=== PATIENT | male | born 1955 | race Caucasian/White ===

== ENCOUNTER 2017-02-08 11:01 | Outpatient (CLI) | payer MEDICARE, MEDICAID ==
--- NOTE | 2017-02-09 11:10 | Ultrasound Report ---
ABDOMEN ULTRASOUND: 02/08/2017 HISTORY: Abdominal pain. Real-time scanning by the contact lens fitter with saved static images reviewed. COMPARISON: 07/14/2010 FINDINGS: LIVER: 15.8 cm longitudinally. Increased hepatic echogenicity consistent with fatty infiltration. A 5 mm area of low attenuation superior left lobe uncertain significance, possible tiny cyst or focal fatty sparing. GALLBLADDER: Contracted with stones, the largest 2.3 cm. COMMON BILE DUCT: 5.4 mm. INCLUDED PORTIONS OF THE PANCREAS: Unremarkable. RIGHT KIDNEY: 13.9 cm, normal in appearance. LEFT KIDNEY: 9.2 cm with multiple cysts, the largest 2.2 x 1.9 x 2.5 cm mid portion and 2.2 x 2.0 x 1.8 cm inferior portion. There is a 1.3 cm mid pole nonobstructing stone. There is a focal area in the superior pole of the left kidney measuring 2.5 x 2.1 x 1.7 cm, question complex cyst versus solid mass. SPLEEN: 12.5 cm longitudinally, unremarkable. AORTA AND INFERIOR VENA CAVA: No significant pathology. FREE FLUID: None. IMPRESSION: ASYMMETRIC RENAL SIZE SIMILAR TO 07/14/2010. AT LEAST TWO SIMPLE CYSTS ARE SEEN ON THE LEFT KIDNEY. THERE IS AN UPPER POLE COMPLEX CYST VERSUS SOLID MASS, 2.5 X 2.1 X 1.7 CM. FURTHER JANETH LUATION BY A DEDICATED RENAL CT MAY BE USEFUL. DIFFUSE FATTY INFILTRATION OF THE LIVER. CHOLELITHIA SIS WITHOUT FINDINGS OF CHOLECYSTITIS. JOB #: [id number] EXT JOB #:[id number]
== END 2017-02-08 11:02 | disposition home or self-care (01) ==
LOC: DI 11:01
PROVIDERS: ATTEND Nurse Practitioner Gerontology
DX: R10.9 Unspecified abdominal pain (principal); Q61.02 Congenital multiple renal cysts; K76.0 Fatty (change of) liver, not elsewhere classified; K80.20 Calculus of gallbladder without cholecystitis without obstruction
CPT/HCPCS: 76700

== ENCOUNTER 2017-03-13 11:42 | Outpatient (CLI) | payer MEDICARE, MEDICAID ==
[2017-03-13] MEDS ORDERED: IOPAMIDOL-300 50 ML VIAL ONE (11:55)
[2017-03-13] MEDS ORDERED: IOPAMIDOL-300 100 ML VIAL ONE (11:55)
[2017-03-13 12:46] LABS: CALCIUM 8.9 mg/dL (8.5-10.3)
[2017-03-13] MEDS ORDERED: IOPAMIDOL-300 50 ML VIAL PO ONE (13:11)
[2017-03-13] MEDS ORDERED: IOPAMIDOL-300 100 ML VIAL IVP ONE (13:11)
--- NOTE | 2017-03-13 16:32 | CT Report ---
DATE OF SERVICE: 03/13/2017 CT OF ABDOMEN WITH CONTRAST: 03/13/2017 CLINICAL INDICATION: Possible renal mass on ultrasound TECHNIQUE: Axial CT images of the abdomen were obtained with intravenous contrast. COMPARISON: Ultrasound 02/08/2017. FINDINGS: Limited evaluation of the lung bases demonstrates minimal atelectasis. ABDOMEN: Right kidney appears unremarkable. The left kidney is atrophic, with multiple calculi pres ent. The lesion arising from the upper pole of the left kidney is hyperdense on CT, measuring 60 Hounsfield un its, compatible with a solid renal lesion, and measures 2.1 x 2.0 x 2.2 cm. Lower pole cysts are also not ed. There is normal enhancement of the left renal vein. The gallbladder demonstrates multiple calculi. The liver, spleen, pancreas and adrenal glands appear unremarkable. No bowel dilatation, free gas, or fr ee fluid is present. No abdominal adenopathy is seen. Osseous structures demonstrate degenerative changes. IMPRESSION: HYPERDENSE LESION ARISING FROM THE UPPER POLE OF THE ATROPHIC LEFT KIDNEY, COMPATIBLE WI TH A SOLID RENAL MASS, MEASURING [address] In accordance with CT protocol optimization, one or more of the following dose reduction techniques w ere utilized for this exam: automated exposure control, adjustment of mA and/or KV based on patient size , or use of iterative reconstructive technique. TD: 03/13/2017 17:31
== END 2017-03-13 11:43 | disposition home or self-care (01) ==
LOC: LAB 11:42
PROVIDERS: ATTEND Nurse Practitioner Gerontology
DX: N28.89 Other specified disorders of kidney and ureter (principal)
CPT/HCPCS: 36415; 74160; 80048; Q9967

== ENCOUNTER 2017-06-12 09:02 | Outpatient (CLI) | payer MEDICARE, MEDICAID ==
[2017-06-12 13:13] LABS: BASOPHILS # (AUTO) 0.1 10^3/uL (0.0-0.1); BASOPHILS % (AUTO) 0.8 %; EOSINOPHILS # (AUTO) 0.2 10^3/uL (0.0-0.7); EOSINOPHILS % (AUTO) 2.7 %; HGB - HEMOGLOBIN 14.5 g/dL (14.0-18.0); LYMPHOCYTES # (AUTO) 2.3 10^3/uL (1.5-3.5); LYMPHOCYTES % (AUTO) 28.4 %; MEAN CORPUSCULAR HEMOGLOBIN 29.1 pg (27.0-31.0); MEAN CORPUSCULAR VOLUME 85.8 fL (80.0-94.0); MEAN PLATELET VOLUME 7.3 fL (7.4-11.4); MONOCYTES # (AUTO) 0.6 10^3/uL (0.0-1.0); MONOCYTES % (AUTO) 6.9 %; NEUTROPHILS # (AUTO) 4.9 10^3/uL (1.5-6.6); NEUTROPHILS % (AUTO) 61.2 %; PLT - PLATELET COUNT 287 10^3/uL (130-450); RED BLOOD COUNT 4.98 10^6/uL (4.70-6.10); RED CELL DISTRIBUTION WIDTH 13.7 % (12.0-15.0)
[2017-06-12 13:28] LABS: ALBUMIN/GLOBULIN RATIO 1.3 (1.0-2.2); BILIRUBIN,TOTAL 0.8 mg/dL (0.2-1.0); CALCIUM 8.4 mg/dL (8.5-10.3); CREATININE 1.1 mg/dL (0.6-1.2); TOTAL PROTEIN 7.1 g/dL (6.7-8.2)
== END 2017-06-12 09:03 | disposition home or self-care (01) ==
LOC: LAB.N 09:02
PROVIDERS: ATTEND Urology
DX: N28.89 Other specified disorders of kidney and ureter (principal)
CPT/HCPCS: 36415; 80053; 85025

== ENCOUNTER 2017-11-27 08:00 | Outpatient (CLI) | payer MEDICARE, MEDICAID ==
[2017-11-27 19:06] LABS: CALCIUM 9.2 mg/dL (8.5-10.3)
== END 2017-11-27 08:01 | disposition home or self-care (01) ==
LOC: LAB.N 08:00
PROVIDERS: ATTEND Nurse Practitioner Gerontology
DX: Z90.5 Acquired absence of kidney (principal); I10 Essential (primary) hypertension; Z13.9 Encounter for screening, unspecified; N28.89 Other specified disorders of kidney and ureter
CPT/HCPCS: 36415; 80048

== ENCOUNTER 2018-01-12 12:14 | Outpatient (CLI) | payer MEDICARE, MEDICAID ==
[2018-01-12 19:25] LABS: ALBUMIN 4.4 g/dL (3.2-5.5); ALBUMIN/GLOBULIN RATIO 1.3 (1.0-2.2); BILIRUBIN,TOTAL 0.9 mg/dL (0.2-1.0); CREATININE 0.9 mg/dL (0.6-1.2); TOTAL PROTEIN 7.7 g/dL (6.7-8.2)
== END 2018-01-12 23:59 ==
LOC: LAB.N 12:14
PROVIDERS: ATTEND Urology
DX: C64.2 Malignant neoplasm of left kidney, except renal pelvis (principal)
CPT/HCPCS: 36415; 80053

== ENCOUNTER 2018-05-01 14:56 | Outpatient (CLI) | payer MEDICARE, MEDICAID ==
--- NOTE | 2018-05-01 16:25 | XRAY Report ---
Reason: abnormal breath counds LLL Procedure Date: 05/01/2018 Accession Number: [id number] / [id number] Procedure: XRN - Chest 2 View X-Ray CPT Code: 59974 FULL RESULT: EXAM: CHEST RADIOGRAPHY EXAM DATE: 05/01/2018 03:15 PM. CLINICAL HISTORY: Abnormal breath sounds left lower lobe. COMPARISON: Ribs with PA chest left 11/25/2015 8:24 AM. TECHNIQUE: 2 views. FINDINGS: Lungs/Pleura: No focal opacities evident. No pleural effusion. No pneumothorax. Normal volumes. Mediastinum: Heart and mediastinal contours are unremarkable. Other: None. IMPRESSION: No acute airspace disease is detected. RADIA
== END 2018-05-01 14:57 | disposition home or self-care (01) ==
LOC: DI.N 14:56
PROVIDERS: ATTEND Nurse Practitioner Gerontology
DX: R09.89 Other specified symptoms and signs involving the circulatory and respiratory systems (principal)
CPT/HCPCS: 71046

== ENCOUNTER 2019-03-11 08:00 | Outpatient (CLI) | payer MEDICARE, MEDICAID ==
[2019-03-11 18:52] LABS: ALBUMIN 4.1 g/dL (3.2-5.5); ALBUMIN/GLOBULIN RATIO 1.4 (1.0-2.2); BILIRUBIN,TOTAL 0.8 mg/dL (0.2-1.0); CALCIUM 9.1 mg/dL (8.5-10.3); TOTAL PROTEIN 7.1 g/dL (6.7-8.2)
== END 2019-03-11 23:59 | disposition home or self-care (01) ==
LOC: LAB.N 08:00
PROVIDERS: ATTEND Urology
DX: Z85.528 Personal history of other malignant neoplasm of kidney (principal)
CPT/HCPCS: 36415; 80053

== ENCOUNTER 2020-10-12 08:00 | Outpatient (CLI) | payer MEDICARE, MEDICAID ==
[2020-10-12 17:47] LABS: BASOPHILS # (AUTO) 0.1 10^3/uL (0.0-0.1); BASOPHILS % (AUTO) 0.8 %; EOSINOPHILS # (AUTO) 0.2 10^3/uL (0.0-0.7); EOSINOPHILS % (AUTO) 2.1 %; HCT - HEMATOCRIT 48.7 % (42.0-52.0); HGB - HEMOGLOBIN 15.6 g/dL (14.0-18.0); LYMPHOCYTES # (AUTO) 1.8 10^3/uL (1.5-3.5); LYMPHOCYTES % (AUTO) 19.2 %; MEAN CORPUSCULAR HEMOGLOBIN 28.3 pg (27.0-31.0); MEAN CORPUSCULAR VOLUME 88.4 fL (80.0-94.0); MEAN PLATELET VOLUME 9.6 fL (7.4-11.4); MONOCYTES # (AUTO) 0.5 10^3/uL (0.0-1.0); MONOCYTES % (AUTO) 5.9 %; NEUTROPHILS # (AUTO) 6.6 10^3/uL (1.5-6.6); NEUTROPHILS % (AUTO) 71.7 %; PLT - PLATELET COUNT 325 10^3/uL (130-450); RED BLOOD COUNT 5.51 10^6/uL (4.70-6.10); RED CELL DISTRIBUTION WIDTH 12.8 % (12.0-15.0); WHITE BLOOD COUNT 9.2 x10^3/uL (4.8-10.8)
[2020-10-12 18:31] LABS: ALBUMIN 4.1 g/dL (3.2-5.5); ALBUMIN/GLOBULIN RATIO 1.3 (1.0-2.2); ALKALINE PHOSPHATASE 93 IU/L (42-121); ALT ALANINE AMINOTRANSFERASE 33 IU/L (10-60); AST ASPARTATE AMINOTRANSFERASE 31 IU/L (10-42); BILIRUBIN,TOTAL 0.8 mg/dL (0.2-1.0); BUN - BLOOD UREA NITROGEN 11 mg/dL (6-20); CALCIUM 9.3 mg/dL (8.5-10.3); CARBON DIOXIDE - CO2 28 mmol/L (21-32); CHLORIDE 99 mmol/L (101-111); CHOL/HDL RATIO 2.5 (<5.0); CHOLESTEROL 129 mg/dL; GFR - MDRD 75 (>89); GLUCOSE 341 mg/dL (70-100); HDL CHOLESTEROL 52 mg/dL; LDL CHOLESTEROL,CALCULATED 59 mg/dL; LDL/HDL RATIO 1.1 (<3.6); POTASSIUM 4.2 mmol/L (3.5-5.0); SODIUM 138 mmol/L (135-145); TOTAL PROTEIN 7.2 g/dL (6.7-8.2); TRIGLYCERIDES 89 mg/dL; URIC ACID 4.8 mg/dL (2.6-7.2); VLDL CHOLESTEROL 18 mg/dL
[2020-10-12 18:42] LABS: THYROID STIMULATING HORMONE 1.51 uIU/mL (0.34-5.60)
[2020-10-12 19:10] LABS: CREATININE,URINE 117.7 mg/dL; MICROALBUM/CREATININE RATIO,UR 117.2 ug/mg (<30.0); MICROALBUMIN,URINE 13.8 mg/dL (0-300.0)
[2020-10-12 20:09] LABS: ESTIMATED AVERAGE GLUCOSE 258 mg/dL (70-100); HEMOGLOBIN A1c% 10.6 % (4.27-6.07)
== END 2020-10-12 23:59 | disposition home or self-care (01) ==
LOC: LAB.WCP 08:00
PROVIDERS: ATTEND Internal Medicine
DX: I10 Essential (primary) hypertension (principal); R73.01 Impaired fasting glucose; Z12.5 Encounter for screening for malignant neoplasm of prostate; R53.83 Other fatigue; M10.9 Gout, unspecified
CPT/HCPCS: 36415; 80053; 80061; 82043; 82570; 83036; 84443; 84550; 85025; G0103; 83721; 84153

== ENCOUNTER 2021-07-24 08:00 | Outpatient (CLI) | payer MEDICARE, MEDICAID | END 2021-07-24 23:59 | disposition home or self-care (01) | LOC: LAB.N 08:00 | PROVIDERS: ATTEND Physician Assistant Medical | DX: E11.9 Type 2 diabetes mellitus without complications (principal) | CPT/HCPCS: 82962 ==

== ENCOUNTER 2022-03-16 10:10 | Outpatient (CLI) | payer MEDICARE, MEDICAID ==
[2022-03-16 12:10] LABS: BASOPHILS # (AUTO) 0.1 10^3/uL (0.0-0.1); EOSINOPHILS # (AUTO) 0.2 10^3/uL (0.0-0.7); EOSINOPHILS % (AUTO) 2.6 %; HCT - HEMATOCRIT 49.4 % (42.0-52.0); HGB - HEMOGLOBIN 16.1 g/dL (14.0-18.0); LYMPHOCYTES % (AUTO) 25.4 %; MEAN CORPUSCULAR HGB CONC 32.6 g/dL (32.0-36.0); MEAN CORPUSCULAR VOLUME 88.8 fL (80.0-94.0); MEAN PLATELET VOLUME 9.4 fL (7.4-11.4); MONOCYTES # (AUTO) 0.6 10^3/uL (0.0-1.0); MONOCYTES % (AUTO) 7.5 %; NEUTROPHILS % (AUTO) 63.2 %; PLT - PLATELET COUNT 296 10^3/uL (130-450); RED BLOOD COUNT 5.56 10^6/uL (4.70-6.10); RED CELL DISTRIBUTION WIDTH 12.7 % (12.0-15.0)
[2022-03-16 12:27] LABS: ALBUMIN 4.1 g/dL (3.2-5.5); ALBUMIN/GLOBULIN RATIO 1.3 (1.0-2.2); ALKALINE PHOSPHATASE 81 IU/L (42-121); ALT ALANINE AMINOTRANSFERASE 20 IU/L (10-60); AST ASPARTATE AMINOTRANSFERASE 19 IU/L (10-42); BUN - BLOOD UREA NITROGEN 19 mg/dL (6-20); CALCIUM 9.2 mg/dL (8.5-10.3); CARBON DIOXIDE - CO2 28 mmol/L (21-32); CHLORIDE 99 mmol/L (101-111); CHOL/HDL RATIO 2.3 (<5.0); CHOLESTEROL 109 mg/dL; GFR - MDRD 75 (>89); GLUCOSE 150 mg/dL (70-100); HDL CHOLESTEROL 48 mg/dL; LDL CHOLESTEROL,CALCULATED 51 mg/dL; LDL/HDL RATIO 1.1 (<3.6); SODIUM 136 mmol/L (135-145); TOTAL PROTEIN 7.3 g/dL (6.7-8.2); TRIGLYCERIDES 51 mg/dL; VLDL CHOLESTEROL 10 mg/dL
[2022-03-16 12:42] LABS: THYROID STIMULATING HORMONE 2.13 uIU/mL (0.34-5.60)
[2022-03-16 13:17] LABS: ESTIMATED AVERAGE GLUCOSE 134 mg/dL (70-100); HEMOGLOBIN A1c% 6.3 % (4.27-6.07)
== END 2022-03-16 10:11 | disposition home or self-care (01) ==
LOC: LAB.N 10:10
PROVIDERS: ATTEND Internal Medicine
DX: I10 Essential (primary) hypertension (principal); E11.9 Type 2 diabetes mellitus without complications; Z12.5 Encounter for screening for malignant neoplasm of prostate; M10.9 Gout, unspecified
CPT/HCPCS: 36415; 80053; 80061; 83036; 84443; 84550; 85025; G0103; 83721; 84153

== ENCOUNTER 2022-10-17 12:34 | Outpatient (CLI) | payer MEDICARE, MEDICAID ==
[2022-10-17 18:26] LABS: ALBUMIN 4.3 g/dL (3.2-5.5)
[2022-10-17 18:46] LABS: ALBUMIN/GLOBULIN RATIO 1.3 (1.0-2.2); BILIRUBIN,TOTAL 5.7 mg/dL (0.2-1.0); POTASSIUM 3.5 mmol/L (3.5-4.5); TOTAL PROTEIN 7.6 g/dL (6.4-8.9)
[2022-10-17 18:52] LABS: CREATININE,URINE 193.4 mg/dL
[2022-10-17 19:04] LABS: MICROALBUM/CREATININE RATIO,UR 476.7 ug/mg (<30.0); MICROALBUMIN,URINE 92.2 mg/dL
[2022-10-17 22:13] LABS: ESTIMATED AVERAGE GLUCOSE 137 mg/dL (70-100); HEMOGLOBIN A1c% 6.4 % (4.27-6.07)
== END 2022-10-17 12:35 | disposition home or self-care (01) ==
LOC: LAB.N 12:34
PROVIDERS: ATTEND Internal Medicine
DX: E11.9 Type 2 diabetes mellitus without complications (principal); M10.9 Gout, unspecified
CPT/HCPCS: 36415; 80053; 82043; 82570; 83036; 84550

== ENCOUNTER 2022-10-18 10:55 | Outpatient (CLI) | payer MEDICARE, MEDICAID ==
[2022-10-18 18:28] LABS: FERRITIN 457.9 ng/mL (23.9-336.2)
[2022-10-19 05:14] LABS: HBsAG SCREEN Negative (Negative); HCV AB Non Reactive (Non Reactive)
[2022-10-20 19:07] LABS: ACTIN (SMOOTH MUSCLE) ANTIBODY 6 Units (0-19); MITOCHONDRIAL (M2) ANTIBODY <20.0 Units (0.0-20.0)
== END 2022-10-18 10:56 | disposition home or self-care (01) ==
LOC: LAB.N 10:55
PROVIDERS: ATTEND Internal Medicine
DX: R79.89 Other specified abnormal findings of blood chemistry (principal)
CPT/HCPCS: 36415; 82150; 82728; 83540; 83690; 84466; 86015; 86381; 86704; 86803; 87340

== ENCOUNTER 2022-10-19 08:00 | Outpatient (CLI) | payer MEDICARE, MEDICAID ==
[2022-10-19 18:02] LABS: GLUCOSE, URINE (UA) 500 mg/dL (NEGATIVE); KETONES,URINE (UA) NEGATIVE (NEGATIVE); LEUKOCYTE ESTERASE, URINE NEGATIVE (NEGATIVE); NITRITE,URINE NEGATIVE (NEGATIVE); OCCULT BLOOD,URINE TRACE-INTA (NEGATIVE); PH,URINE 5.5 PH (5.0-7.5); PROTEIN,URINE 100 mg/dL (NEGATIVE); UROBILINOGEN,URINE 1 (NORMAL) E.U./dL (NORMAL)
[2022-10-19 18:04] LABS: CLARITY,URINE CLOUDY (CLEAR)
[2022-10-19 18:17] LABS: BILIRUBIN,URINE NEGATIVE (NEGATIVE); ICTOTEST,URINE NEGATIVE
[2022-10-19 18:27] LABS: AMORPHOUS SEDIMENT,UR Moderate /LPF; BACTERIA,URINE Rare /HPF (None Seen); RBC,URINE 0-5 /HPF (0-5); SQUAMOUS EPITHELIAL CELL,UR NONE SEEN (<= Few); WBC,URINE 0-3 /HPF (0-3)
[2022-10-19 18:28] LABS: CRYSTALS,URINE 11-25 Ca Oxalate /LPF
== END 2022-10-19 23:59 | disposition home or self-care (01) ==
LOC: LAB.N 08:00
PROVIDERS: ATTEND Nurse Practitioner Family
DX: R10.30 Lower abdominal pain, unspecified (principal)
CPT/HCPCS: 81001; 81003; 87086

== ENCOUNTER 2022-11-17 20:52 | Outpatient (CLI) | payer MEDICARE, MEDICAID | END 2022-11-17 23:59 | disposition critical access hospital (66) | LOC: EMS 20:52 | DX: R10.826 Epigastric rebound abdominal tenderness (principal); R10.822 Left upper quadrant rebound abdominal tenderness; R10.815 Periumbilic abdominal tenderness; R11.2 Nausea with vomiting, unspecified | CPT/HCPCS: A0425; A0427 ==

== ENCOUNTER 2022-11-17 21:16 | Emergency (ER) | payer MEDICARE, MEDICAID ==
--- NOTE | 2022-11-17 21:22 | ED Physician Documentation ---
History of Present Illness - Stated complaint Stated Complaint: ABD PX - History obtained from History obtained from: Patient - Additonal information Additional information: 67-year-old gentleman with history of reflux, "enlarged heart," and nephrectomy for cancer presents with gradual onset epigastric pain radiating up today. It started this morning and got better around 3 PM when he threw up but still has it mildly. It feels like reflux. PD PAST MEDICAL HISTORY - Present Medications Home Medications: Ambulatory Orders Medication Instructions Recorded Confirmed Aspirin 81 mg 11/25/15 Cyclobenzaprine [Flexeril] 10 mg PO TID PRN #20 tablet 11/25/15 HYDROcod/ACETAM 5/325 [[place] 5/325] 1 - 2 ea PO Q6H PRN #15 tablet 11/25/15 Lisinopril 20 mg 11/25/15 allopurinoL [Allopurinol] 100 mg 11/25/15 amLODIPine [Norvasc] 10 mg 11/25/15 raNITIdine [Zantac] 150 mg 11/25/15 - Allergies Allergies/Adverse Reactions: Allergies Allergy/AdvReac Type Severity Reaction Status Date / Time No Known Drug Allergies Allergy Verified 11/17/22 21:22 PD ED PE NORMAL - Vitals Vital signs reviewed: Yes - General General: Alert and oriented X 3, No acute distress - Neck Neck: Supple, no meningeal sign, No bony TTP - Cardiac Cardiac: RRR, No murmur - Respiratory Respiratory: No respiratory distress, Clear bilaterally - Abdomen Abdomen: Non tender - Extremities Extremities: No edema, No calf tenderness / cord - Neuro Neuro: Alert and oriented X 3, Normal speech Results - Vitals Vitals: Vital Signs - 24 hr 11/17/22 11/17/22 11/17/22 21:22 21:24 23:24 Temperature 36.8 C Heart Rate 80 75 66 Respiratory 18 22 20 Rate Blood Pressure 140/90 H 175/114 H 156/82 H O2 Saturation 100 98 97 11/18/22 11/18/22 11/18/22 01:00 03:00 05:00 Temperature 37.1 C Heart Rate 58 L 48 L 54 L Respiratory 20 18 20 Rate Blood Pressure 155/78 H 142/70 H 189/82 H O2 Saturation 99 97 99 11/18/22 07:21 Temperature Heart Rate 53 L Respiratory 15 Rate Blood Pressure 138/65 H O2 Saturation 95 Oxygen O2 Source Room air - EKG (time done) 2200 EKG releavant findings:: EKG personally interpreted by author of this note. Relevant findings are: Rate: Rate (enter#) (78) Rhythm: NSR [place]: Normal Intervals: Normal [place] QRS: Normal Ischemia: Non specific changes Compare to prior EKG: Old EKG unavailable Computer interpretation: Agree with computer - Labs Labs: Laboratory Tests 11/17/22 11/17/22 11/18/22 21:27 21:27 00:51 WBC 15.6 H RBC 5.66 Hgb 16.6 Hct 49.3 MCV 87.1 MCH 29.3 MCHC 33.7 RDW 12.9 Plt Count 307 MPV 9.0 Neut # (Auto) 14.4 H Lymph # (Auto) 0.4 L [place] # (Auto) 0.6 Eos # (Auto) 0.0 Baso # (Auto) 0.1 Absolute Nucleated RBC 0.00 Nucleated RBC % 0.0 Sodium 137 Potassium 4.1 Chloride 100 L Carbon Dioxide 26 Anion Gap 11.0 BUN 16 Creatinine 0.9 Estimated GFR (MDRD) 84 L Glucose 219 H Lactic Acid 1.9 Calcium 9.3 Total Bilirubin 4.2 H AST 311 H ALT 254 H Alkaline Phosphatase 154 H Troponin I High Sens 6.0 Total Protein 7.4 Albumin 4.0 Globulin 3.4 Albumin/Globulin Ratio 1.2 Lipase 2028 H 11/18/22 11/18/22 05:20 05:20 WBC 12.0 H RBC 5.41 Hgb 16.2 Hct 47.8 MCV 88.4 MCH 29.9 MCHC 33.9 RDW 13.2 Plt Count 295 MPV 8.9 Neut # (Auto) 9.7 H Lymph # (Auto) 1.4 L [place] # (Auto) 0.8 Eos # (Auto) 0.0 Baso # (Auto) 0.0 Absolute Nucleated RBC 0.00 Nucleated RBC % 0.0 Sodium 137 Potassium 4.1 Chloride 99 L Carbon Dioxide 30 Anion Gap 8.0 BUN 15 Creatinine 1.1 Estimated GFR (MDRD) 67 L Glucose 163 H Lactic Acid Calcium 9.8 Total Bilirubin 3.9 H AST 223 H ALT 258 H Alkaline Phosphatase 189 H Troponin I High Sens Total Protein 7.1 Albumin 4.4 Globulin 2.7 Albumin/Globulin Ratio 1.6 Lipase - Rads (name of study) U/S abd and CT A/P Relevant Findings:: Final report received, EMP independent interpretation of test PD Medical Decision Making - ED course ED course: 67-year-old gentleman presents with upper abdominal pain. Benign exam. Differential diagnosis would include cardiac/MN versus an intra-abdominal issue. EKG not clearly ischemic but slightly abnormal without priors. Troponin negative. CBC showing leukocytosis and abdominal panel with evidence of cholestasis/obstruction and pancreatitis. Suspect gallstone pancreatitis. Imaging both CT and ultrasound ordered, noncontrast on the CT given his history of nephrectomy. Imaging showing gallstones and dilated CBD, so deo with above labs c/w choledocholithiasis. 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 Pt turned over at 11pm chg of shift. Departure - Departure Disposition: 02 Transfer Acute Care Hosp Clinical Impression: Gallstone pancreatitis, Biliary obstruction Condition: Serious
[2022-11-17] MEDS ORDERED: MAG HYDROX/AL HYDROX/SIMETH 30 ML UDC PO STA (21:23)
[2022-11-17] MEDS ORDERED: LIDOCAINE VISCOUS 2% 15 ML ORAL SYRINGE MM STA (21:23)
[2022-11-17 21:32] LABS: BASOPHILS # (AUTO) 0.1 10^3/uL (0.0-0.1); BASOPHILS % (AUTO) 0.4 %; HCT - HEMATOCRIT 49.3 % (42.0-52.0); HGB - HEMOGLOBIN 16.6 g/dL (14.0-18.0); LYMPHOCYTES # (AUTO) 0.4 10^3/uL (1.5-3.5); LYMPHOCYTES % (AUTO) 2.4 %; MEAN CORPUSCULAR HEMOGLOBIN 29.3 pg (27.0-31.0); MEAN CORPUSCULAR HGB CONC 33.7 g/dL (32.0-36.0); MEAN CORPUSCULAR VOLUME 87.1 fL (80.0-94.0); MONOCYTES # (AUTO) 0.6 10^3/uL (0.0-1.0); MONOCYTES % (AUTO) 4.1 %; NEUTROPHILS # (AUTO) 14.4 10^3/uL (1.5-6.6); NEUTROPHILS % (AUTO) 92.7 %; PLT - PLATELET COUNT 307 10^3/uL (130-450); RED BLOOD COUNT 5.66 10^6/uL (4.70-6.10); RED CELL DISTRIBUTION WIDTH 12.9 % (12.0-15.0); WHITE BLOOD COUNT 15.6 x10^3/uL (4.8-10.8)
[2022-11-17 22:13] LABS: ALBUMIN/GLOBULIN RATIO 1.2 (1.0-2.2); BILIRUBIN,TOTAL 4.2 mg/dL (0.2-1.0); CALCIUM 9.3 mg/dL (8.5-10.3); CREATININE 0.9 mg/dL (0.6-1.2); POTASSIUM 4.1 mmol/L (3.5-5.0); TOTAL PROTEIN 7.4 g/dL (6.7-8.2)
[2022-11-17] MEDS ORDERED: HYDROmorphone 1 MG/ML CARPUJECT IVP STA (22:39)
--- NOTE | 2022-11-17 23:01 | XRAY Report ---
PROCEDURE: Chest 1 View X-Ray INDICATIONS: Chest Pain TECHNIQUE: One view of the chest was acquired. COMPARISON: 05/01/2018. FINDINGS: Surgical changes and devices: None. Lungs and pleura: No pleural effusions or pneumothorax. Lungs are clear. Mediastinum: Mediastinal contours appear normal. Heart size is normal. Bones and chest wall: No suspicious bony lesions. Overlying soft tissues appear unremarkable. IMPRESSION: No acute cardiopulmonary disease. Reviewed by: Devaughn Delcid MD on 11/17/2022 10:59 PM PDT Approved by: Devaughn Delcid MD on 11/17/2022 10:59 PM PDT Station ID: [id number]
[2022-11-17] MEDS ORDERED: PIPERACILLIN/TAZOBACTAM 3.375 GM in SODIUM CHLORIDE 0.9% MINIBAG 100 ML IV SCH (23:45)
[2022-11-17] MEDS ORDERED: ACETAMINOPHEN 500 MG TABLET PO PRN (23:50)
[2022-11-17] MEDS ORDERED: ONDANSETRON 4 MG/2 ML VIAL IVP PRN (23:50)
--- NOTE | 2022-11-18 00:19 | CT Report ---
PROCEDURE: ABDOMEN/PELVIS WO INDICATIONS: abd pain TECHNIQUE: A CT scan of the abdomen and pelvis was performed without the use of intravenous contrast. Images we re recorded and evaluated at appropriate window settings. Reformats: coronal and sagittal. For radiat ion dose reduction, the following was used: automated exposure control, adjustment of mA and/or kV ac cording to patient size. COMPARISON: CT abdomen pelvis 03/13/2017. FINDINGS: Image quality: There is motion artifact limiting evaluation. Lung bases:There is mild dependent atelectasis. Heart: Heart is normal in size. ABDOMEN: Liver:Noncontrast evaluation demonstrates no discrete mass. Gallbladder:Gallbladder is contracted with multiple internal gallstones. No pericholecystic fluid. Biliary ducts: No biliary ductal dilatation. Pancreas:There is peripancreatic fat stranding and fluid suggestive of acute pancreatitis. Evaluatio n for necrosis is limited in the absence of intravenous contrast. No definite peripancreatic fluid co llections. Spleen: Normal in size. Adrenal Glands: No adrenal nodules. Kidneys and Ureters: The left kidney is surgically absent. No discrete masses in the surgical bed. R ight kidney demonstrates no hydronephrosis. Stomach and Bowel: Stomach, small bowel loops, and colon are normal in caliber and wall thickness. N o evidence of appendicitis. Peritoneum:There is a small amount of free fluid along the anterior pararenal spaces. No free air. Ventral Wall: There is a small fat-containing umbilical hernia. Abdominal Nodes: No retroperitoneal or mesenteric adenopathy by size criteria. Vessels: Aorta and inferior vena cava are normal in size. PELVIS: Pelvic Organs:The prostate is mildly enlarged. Bladder: Unremarkable. Pelvic Nodes: No enlarged lymph nodes. Miscellaneous: No inguinal hernias. Bones: Visualized osseous structures demonstrate no suspicious lesions. IMPRESSION: 1. Peripancreatic fat stranding and fluid compatible with acute pancreatitis. Evaluation for necrosis is limited in the absence of intravenous contrast. No discrete peripancreatic fluid collections. 2. Contracted gallbladder with cholelithiasis redemonstrated. If there is clinical suspicion for chol ecystitis, further evaluation may obtained with ultrasound. Reviewed by: Devaughn Delcid MD on 11/18/2022 12:17 AM PDT Approved by: Devaughn Delcid MD on 11/18/2022 12:17 AM PDT Station ID: [id number]
--- NOTE | 2022-11-18 01:14 | Ultrasound Report ---
PROCEDURE: Abdomen Limited INDICATIONS: Abdominal pain, elevated liver enzymes TECHNIQUE: Real-time focused scanning was performed of the abdomen, with image documentation. COMPARISONS: None. FINDINGS: Liver: Liver is normal in size without focal hepatic lesions identified. There is increased hepatic e chogenicity compatible with fatty infiltration. Gallbladder: Gallbladder is contracted with a few gallstones demonstrated. No gallbladder wall thicke alicja or pericholecystic fluid. Biliary ducts: No definite intrahepatic biliary ductal dilatation. The visualized common bile duct ap pears mildly distended, measuring up to 1.1 cm, with tapering distally at the level of the pancreatic head measuring up to 0.7 cm. Pancreas: The visualized pancreas appears grossly unremarkable, with evaluation limited by bowel gas. Right kidney: Right kidney measures 13.2. There is minimal right pelviectasis. IMPRESSION: 1. Cholelithiasis with contraction of the gallbladder. No definite sonographic evidence of cholecysti tis. 2. Mild biliary ductal dilatation.Choledocholithiasis with obstruction cannot be excluded. Further ev aluation may be obtained with MRCP if indicated. Reviewed by: Devaughn Delcid MD on 11/18/2022 1:13 AM PDT Approved by: Devaughn Delcid MD on 11/18/2022 1:13 AM PDT Station ID: [id number]
[2022-11-18] MEDS: D5.45NS W/20 MEQ KCL 1,000 ML IV SCH ×2 (01:30→11:03)
[2022-11-18 05:32] LABS: BASOPHILS % (AUTO) 0.3 %; EOSINOPHILS % (AUTO) 0.3 %; HCT - HEMATOCRIT 47.8 % (42.0-52.0); HGB - HEMOGLOBIN 16.2 g/dL (14.0-18.0); LYMPHOCYTES # (AUTO) 1.4 10^3/uL (1.5-3.5); MEAN CORPUSCULAR HEMOGLOBIN 29.9 pg (27.0-31.0); MEAN CORPUSCULAR HGB CONC 33.9 g/dL (32.0-36.0); MEAN CORPUSCULAR VOLUME 88.4 fL (80.0-94.0); MEAN PLATELET VOLUME 8.9 fL (7.4-11.4); MONOCYTES # (AUTO) 0.8 10^3/uL (0.0-1.0); MONOCYTES % (AUTO) 6.5 %; NEUTROPHILS # (AUTO) 9.7 10^3/uL (1.5-6.6); NEUTROPHILS % (AUTO) 80.6 %; PLT - PLATELET COUNT 295 10^3/uL (130-450); RED BLOOD COUNT 5.41 10^6/uL (4.70-6.10); RED CELL DISTRIBUTION WIDTH 13.2 % (12.0-15.0)
[2022-11-18 05:43] LABS: ALBUMIN 4.4 g/dL (3.2-5.5); ALBUMIN/GLOBULIN RATIO 1.6 (1.0-2.2); BILIRUBIN,TOTAL 3.9 mg/dL (0.2-1.0); CALCIUM 9.8 mg/dL (8.5-10.3); CREATININE 1.1 mg/dL (0.6-1.3); POTASSIUM 4.1 mmol/L (3.5-4.5); TOTAL PROTEIN 7.1 g/dL (6.4-8.9)
[2022-11-18] MEDS ORDERED: HYDROmorphone 1 MG/ML CARPUJECT IVP STA (06:22)
[2022-11-18] MEDS ORDERED: PANTOPRAZOLE 40 MG TABLET PO SCH (07:00)
[2022-11-18] MEDS: PIPERACILLIN/TAZOBACTAM 3.375 GM in SODIUM CHLORIDE 0.9% MINIBAG 100 ML IV SCH ×2 (08:29→13:49)
--- NOTE | 2022-11-18 10:54 | ED Physician Documentation ---
ED Addendum - Addendum Addendum: Patient signed out to me by overnight physician. Patient is pending transfer for choledocholithiasis with pancreatitis. A.m. labs appear to be slightly improved from yesterday. Patient states that his pain is also controlled and feels better than yesterday. MRCP has been ordered. If biliary obstruction has cleared on the MRCP then potential for patient to be admitted here. MRCP IMPRESSION: Acute interstitial pancreatitis without acute peripancreatic collection. Choledocholithiasis, with at least 4 stones ranging in size from 0.6 - 1.1 cm. Gallbladder is contracted. Findings do not favor acute cholecystitis. 11/18/22 14:32 Patient's MRCP demonstrates a 4 stones in the common bile duct. As such patient still requires an ERCP and remains on the waiting list. 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 Patient to be signed out to oncoming provider at shift change.
--- NOTE | 2022-11-18 13:37 | MRI Report ---
PROCEDURE: MRCP W/WO INDICATIONS: gallstone pancreatits w dilated cbd CONTRAST: gadavist 8.9 ml TECHNIQUE: Coronal ultra fast SE through the abdomen, axial 2-D spoiled GE in- and [id number], and breath-hold T2 FSE with fat saturation through the biliary system and pancreas. Oblique coronal and axial thin- slice ultra fast SE, radial thick-slab ultra fast SE centered on the extrahepatic bile ducts. COMPARISON: CT and ultrasound, 11/17/2022 FINDINGS: Image quality: Suboptimal due to motion artifact. Gallbladder: Contracted around stones. Biliary tree: Dilated common bile duct, measuring up to 1.4 cm. At least 4 stones are present within the common bile duct, ranging from 0.6 to 1.1 cm (series 9, image 5). Pancreas: No pancreatic ductal dilation. Homogeneous enhancement. Peripancreatic fat stranding. Lung bases and heart: Bibasilar atelectasis. Liver: No solid mass. Spleen: No splenomegaly. Adrenals: No adrenal nodule. Kidneys and ureters: No hydronephrosis. No renal cystic lesion which requires follow up. No solid mas s. Left nephrectomy. Bowel and peritoneum: No bowel distension. No pathologic free fluid. Lymph nodes: No central or retroperitoneal adenopathy. Vessels: No infrarenal aortic aneurysm. Bones: No aggressive osseous abnormality. Other: No significant ventral hernia. IMPRESSION: Acute interstitial pancreatitis without acute peripancreatic collection. Choledocholithiasis, with at least 4 stones ranging in size from 0.6 - 1.1 cm. Gallbladder is contracted. Findings do not favor acute cholecystitis. Reviewed by: Hernesto Guerrero on 11/18/2022 1:35 PM PDT Approved by: Hernesto Guerrero on 11/18/2022 1:35 PM PDT Station ID: [id number]
[2022-11-18 15:24] VITALS: BP 140/108; O2SAT 95
--- NOTE | 2022-11-18 15:32 | ED Physician Documentation ---
ED Addendum - Addendum Addendum: 11/18/22 15:31 He is accepted at this time [facility] by Dr. Mcleod with whom I discussed the case. Disposition: Transfer to [facility] for specialty care, likely needing ERCP Condition: Stable
== END 2022-11-18 17:31 | disposition short-term general hospital (02) ==
LOC: EDUNIT# → ED 21:16
DX: K85.10 Biliary acute pancreatitis without necrosis or infection (principal); K83.1 Obstruction of bile duct; Z79.82 Long term (current) use of aspirin; Z79.899 Other long term (current) drug therapy
CPT/HCPCS: 36415; 71045; 74176; 74183; 76705; 80053; 83605; 83690; 84484; 85025; 87040; 93005; 96365; 96366; 96368; 96375; 99285; A9270; A9585; J1170

== ENCOUNTER 2023-04-25 10:14 | Outpatient (CLI) | payer MEDICARE, MEDICAID ==
[2023-04-25 12:52] LABS: BASOPHILS # (AUTO) 0.1 10^3/uL (0.0-0.1); BASOPHILS % (AUTO) 0.8 %; EOSINOPHILS # (AUTO) 0.2 10^3/uL (0.0-0.7); EOSINOPHILS % (AUTO) 2.5 %; HCT - HEMATOCRIT 48.2 % (42.0-52.0); LYMPHOCYTES # (AUTO) 1.7 10^3/uL (1.5-3.5); LYMPHOCYTES % (AUTO) 19.5 %; MEAN CORPUSCULAR HEMOGLOBIN 29.1 pg (27.0-31.0); MEAN CORPUSCULAR HGB CONC 33.2 g/dL (32.0-36.0); MEAN CORPUSCULAR VOLUME 87.8 fL (80.0-94.0); MEAN PLATELET VOLUME 9.3 fL (7.4-11.4); MONOCYTES # (AUTO) 0.8 10^3/uL (0.0-1.0); NEUTROPHILS % (AUTO) 67.9 %; PLT - PLATELET COUNT 292 10^3/uL (130-450); RED BLOOD COUNT 5.49 10^6/uL (4.70-6.10); WHITE BLOOD COUNT 8.8 x10^3/uL (4.8-10.8)
[2023-04-25 13:18] LABS: ALBUMIN 4.4 g/dL (3.2-5.5); ALBUMIN/GLOBULIN RATIO 1.5 (1.0-2.2); ALKALINE PHOSPHATASE 85 IU/L (42-121); ALT ALANINE AMINOTRANSFERASE 9 IU/L (10-60); AST ASPARTATE AMINOTRANSFERASE 11 IU/L (10-42); BILIRUBIN,TOTAL 0.9 mg/dL (0.2-1.0); BUN - BLOOD UREA NITROGEN 13 mg/dL (6-20); CALCIUM 9.3 mg/dL (8.5-10.3); CARBON DIOXIDE - CO2 29 mmol/L (21-32); CHLORIDE 104 mmol/L (101-111); CHOL/HDL RATIO 2.1 (<5.0); CHOLESTEROL 107 mg/dL; CREATININE 0.9 mg/dL (0.6-1.3); GFR - MDRD 84 (>89); GLUCOSE 110 mg/dL (74-104); HDL CHOLESTEROL 50 mg/dL; LDL CHOLESTEROL,CALCULATED 44 mg/dL; LDL/HDL RATIO 0.9 (<3.6); SODIUM 138 mmol/L (135-145); TOTAL PROTEIN 7.3 g/dL (6.4-8.9); TRIGLYCERIDES 63 mg/dL (48-352); URIC ACID 5.7 mg/dL (4.4-7.6); VLDL CHOLESTEROL 13 mg/dL
[2023-04-25 13:30] LABS: THYROID STIMULATING HORMONE 1.45 uIU/mL (0.34-5.60)
[2023-04-25 13:37] LABS: ESTIMATED AVERAGE GLUCOSE 128 mg/dL (70-100); HEMOGLOBIN A1c% 6.1 % (4.27-6.07)
[2023-04-25 18:26] LABS: MICROALBUM/CREATININE RATIO,UR 206.8 ug/mg (<30.0); MICROALBUMIN,URINE 39.5 mg/dL
== END 2023-04-25 10:15 | disposition home or self-care (01) ==
LOC: LAB.N 10:14
PROVIDERS: ATTEND Internal Medicine
DX: E11.29 Type 2 diabetes mellitus with other diabetic kidney complication (principal); Z12.5 Encounter for screening for malignant neoplasm of prostate; K59.00 Constipation, unspecified; M10.9 Gout, unspecified; I10 Essential (primary) hypertension
CPT/HCPCS: 36415; 80053; 80061; 82043; 82570; 83036; 84443; 84550; 85025; G0103; 83721; 84153

== ENCOUNTER 2023-05-02 10:58 | Outpatient (CLI) | payer MEDICARE, MEDICAID ==
--- NOTE | 2023-05-02 12:08 | XRAY Report ---
PROCEDURE: Knee 1-2V BL INDICATIONS: OSTEOARTHRITIS, KNEES BILATERAL TECHNIQUE: 2 views of the knee(s) were acquired. COMPARISON: None. FINDINGS: Bones: No fractures or dislocations. Joint space narrowing is seen on the frontal views especially i n the medial compartments and especially on the left. Patellofemoral Soft tissues: No significant suprapatellar joint effusion seen. IMPRESSION: Bilateral joint space narrowing especially of the medial compartment and especially on the left. Reviewed by: Mamadou Cadena MD on 05/02/2023 12:07 PM PST Approved by: Mamadou Cadena MD on 05/02/2023 12:07 PM PST Station ID: [id number]
== END 2023-05-02 10:59 | disposition home or self-care (01) ==
LOC: DI.N 10:58
PROVIDERS: ATTEND Internal Medicine
DX: M17.0 Bilateral primary osteoarthritis of knee (principal)

== ENCOUNTER 2023-08-25 11:47 | Outpatient (CLI) | payer MEDICARE, MEDICAID ==
[2023-08-25 18:18] LABS: CALCIUM 9.3 mg/dL (8.5-10.3)
[2023-08-25 21:29] LABS: ESTIMATED AVERAGE GLUCOSE 137 mg/dL (70-100); HEMOGLOBIN A1c% 6.4 % (4.27-6.07)
== END 2023-08-25 11:48 | disposition home or self-care (01) ==
LOC: LAB.N 11:47
PROVIDERS: ATTEND Internal Medicine
DX: E11.29 Type 2 diabetes mellitus with other diabetic kidney complication (principal)
CPT/HCPCS: 36415; 80048; 83036